=== PATIENT | male | born 1970 | race Two or more races ===

== ENCOUNTER 2023-12-19 12:31 | Outpatient (AMB) | payer OTHER, SELFPAY ==
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
[2023-12-19 12:53] VITALS: BP 108/68; PULSE 66; RESP 16; O2SAT 97; BMI 32.0
== END 2023-12-19 13:58 | disposition home or self-care (01) ==
PROVIDERS: PCP Physician Assistant; Visit Provider Physician Assistant
DX: Z00.00 Encounter for general adult medical examination without abnormal findings (principal); F17.210 Nicotine dependence, cigarettes, uncomplicated; F11.20 Opioid dependence, uncomplicated; F41.1 Generalized anxiety disorder; F33.1 Major depressive disorder, recurrent, moderate; E78.9 Disorder of lipoprotein metabolism, unspecified
CPT/HCPCS: 99386

== ENCOUNTER 2024-01-02 12:44 | Outpatient (AMB) | payer OTHER, SELFPAY ==
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
[2024-01-02 12:56] VITALS: BP 131/73; PULSE 61; O2SAT 96; BMI 31.9
== END 2024-01-02 13:31 | disposition home or self-care (01) ==
PROVIDERS: PCP Physician Assistant; Visit Provider Nurse Practitioner Family
DX: M51.35 Other intervertebral disc degeneration, thoracolumbar region (principal); M54.16 Radiculopathy, lumbar region; M47.817 Spondylosis without myelopathy or radiculopathy, lumbosacral region; R26.81 Unsteadiness on feet
CPT/HCPCS: 99204

== ENCOUNTER → 2024-01-02 12:44 | Outpatient (BNVA) | payer OTHER, SELFPAY | PROVIDERS: PCP Physician Assistant; Visit Provider Nurse Practitioner Family | DX: M51.35 Other intervertebral disc degeneration, thoracolumbar region (principal); M54.16 Radiculopathy, lumbar region; M47.817 Spondylosis without myelopathy or radiculopathy, lumbosacral region; R26.81 Unsteadiness on feet | CPT/HCPCS: 99202 ==

== ENCOUNTER 2024-01-19 09:45 | Outpatient (REF) | payer OTHER, SELFPAY ==
--- NOTE | ~2024-01-19 | XR_ITS ---
EXAMINATION: XR LUMBOSACRAL SPINE WITH OBLIQUES CLINICAL INFORMATION: Vertebral disc degeneration, thoracolumbar region COMPARISON: 01/31/2018 TECHNIQUE: AP, both oblique, and lateral views of the lumbar spine. Lateral view of the lumbosacral junction. FINDINGS: The visualized lumbar vertebrae are intact with mild L1-L2 dextroscoliosis. The right 12th rib is rudimentary. Intervertebral disc spaces are markedly reduced at L4-L5 and L5-S1. Bilateral oblique x-rays of lumbar spine show intact articular processes with no evidence of spondylolysis. XR/XR lumbar spine 4V min IMPRESSION: 1. Interval development of mild L1-L2 dextroscoliosis which may be positional. 2. Interval development of L4-L5 and L5-S1 degenerative lumbar disc disease. 3. No fracture or dislocation of lumbar spine is seen.
--- NOTE | ~2024-01-19 | XR_ITS ---
EXAMINATION: XR THORACIC SPINE CLINICAL INFORMATION: Thoracic spondylosis COMPARISON: None available. TECHNIQUE: 3 views of the thoracic spine were obtained. FINDINGS: The visualized thoracic vertebrae are intact with normal alignment. Intervertebral disc spaces are normal. 0.6 cm calcified granuloma is seen in lateral left upper lobe. XR/XR thoracic spine 3V IMPRESSION: 1. Normal thoracic spine x-ray. 2. No fracture or dislocation of thoracic spine is seen. 3. Lateral left upper lobe calcified granuloma is present, previously visualized on CT scan of chest on 02/02/2018.
[2024-01-19 10:57] LABS: Hematocrit 42.8 % (42.0-52.0); Hemoglobin 13.5 g/dl (14.0-18.0); Mean Corpuscular HGB Conc 31.5 g/dl (31.0-36.0); Mean Corpuscular Hemoglobin 25.9 pg (27.0-33.0); Mean Corpuscular Volume 82.1 fL (80.0-98.0); Mean Platelet Volume 11.7 fL (9.4-12.4); Platelet Count 212 X10*3/uL (160-400); Red Blood Count 5.21 X10*6/uL (4.60-5.80); Red Cell Distribution Width 15.1 % (11.0-16.0); White Blood Count 6.4 X10*3/uL (4.8-10.8)
[2024-01-19 11:27] LABS: Alanine Aminotransferase 20 U/L (0-40); Albumin Level 3.8 g/dL (3.5-5.0); Alkaline Phosphatase 83 U/L (39-117); Anion Gap 12 (12-20); Aspartate Amino Transferase 25 U/L (5-37); Bilirubin Total 0.3 mg/dL (0.0-1.0); Blood Urea Nitrogen 19 mg/dL (9-16); Calcium 9.6 mg/dL (8.4-10.2); Carbon Dioxide 30 mmol/L (22-29); Chloride 105 mmol/L (96-108); Cholesterol 211 mg/dL (<200); Estimated Glomerular Filt Rate > 60; Glucose Fasting 72 mg/dL (60-99); HDL Cholesterol 38 mg/dL (>40); LDL Cholesterol Calculated 130 mg/dL (<100); Sodium 142 mmol/L (135-145); Total Protein 8.2 g/dL (6.5-8.0); Triglycerides 218 mg/dL (<150)
== END 2024-01-19 09:46 | disposition home or self-care (01) ==
LOC: HO.LAB 09:45
PROVIDERS: Absent Provider Nurse Practitioner Family; PCP Physician Assistant; Visit Provider Physician Assistant
DX: Z12.5 Encounter for screening for malignant neoplasm of prostate (principal); Z13.1 Encounter for screening for diabetes mellitus; K21.9 Gastro-esophageal reflux disease without esophagitis; E78.9 Disorder of lipoprotein metabolism, unspecified; M51.35 Other intervertebral disc degeneration, thoracolumbar region; M54.16 Radiculopathy, lumbar region; M47.817 Spondylosis without myelopathy or radiculopathy, lumbosacral region
CPT/HCPCS: 36415; 72072; 72110; 80053; 80061; 84153; 85027

== ENCOUNTER 2024-01-26 11:00 | Outpatient (RCR) | payer OTHER, SELFPAY ==
--- NOTE | 2023-12-29 14:07 | MHC.PT.EP ---
[facility] [place] Office [place] Office [place] Office [address] [phone] F: [phone] F: [phone] F: [phone] F: [phone] Physical Therapy Plan of Care Date of Evaluation: 12/29/23 Date of Surgery: Diagnosis: Lumbar disc disease: Unspecified thoracic, thoracolumbar and lumbosacral intervertebral disc disorder (MD Dx) Lumbar radiculopathy (PT Dx) (RS) Assessment: Patient is a 53 y.o. male who is referred to PT by Steve Cohen PA-C with Dx of Lumbar disc disease: Unspecified thoracic, thoracolumbar and lumbosacral intervertebral disc disorder.PT diagnosis is lumbar radiculopathy, no imaging has been performed to see any osseous abnormalities or structural changes, also no imaging to indicate disc involvment, but he presents with disc involvment. Patient impairments include pain, poor posture, poor body mechanics, limited ROM, weakness, antalgic gait. Patient current functional limitations are prolonged walking, prolonged standing, prolonged sitting, squat/bend, some difficulty putting on shoes/socks, stair use, get on/off bus, sleeping. Patient will benefit from skilled PT to address aforementioned impairments and functional limitations to meet established goals. Prognosis is fair due to chronic nature of symptoms with compensation over 15+ years. Frequency and Duration: The patient will be seen 1-2x/week for 4 weeks Short Term Goals: 2 weeks Patient demonstrates consistency and independence with HEP to self manage symptoms. Mobility Manager Goals: 4 weeks Patient presents with increased lumbar flexion 70 degrees to be able to put on shoes/socks. Patient presents with increased bilateral glute med strength 4+/5 to be able to walk longer distances to bus stop without rest breaks. Treatment Plan: Modalities to reduce pain, spasms and effusion. Manual therapy to restore motion and function. Therapeutic exercise to improve strength and flexibility. Neuromuscular re-education for posture and balance. Therapeutic activities to return to functional activities of daily living. Electronically signed by: Parker Marinelli, PT, DPT Please sign and return to therapist. Thank you for your referral.
--- NOTE | 2024-03-13 13:07 | MHC.PT.DC ---
[facility] [place] [facility] [place] Office [place] [facility] [address] Josephine Hutchins [address] [phone] F: [phone] F: [phone] F: [phone] F: [phone] Physical Therapy Discharge Report Diagnosis: Lumbar disc disease: Unspecified thoracic, thoracolumbar and lumbosacral intervertebral disc disorder (MD Dx) Lumbar radiculopathy (PT Dx) (RS) Date of Surgery: Date of Evaluation: 12/29/23 Date of Discharge: 03/13/24 Treatments to Date: 4 Cancellations to Date: 1 No Shows to Date: 0 Discharge Status: Independent with HEP Patient Elected to Stop Discharge Summary: Pt last seen for PT on 01/26/24, the assessment reads, Rashad ambulates without AD and tends to lean due to compensations due to back pain and hip weakness. He limits R hip extension and reduced WBing through R leg. He reports fatigue with more exercises for his low back, also pain and pull with stand to sit R side fo his back, likely due to muscle imbalances at pelvis. He reports no increase in pain to end session, just muscle soreness. Encouraged him to work on seated cores strengthening versus standing. He ceased attending on his own accord. Electronically signed by: Parker Marinelli, PT, DPT Please sign and return to therapist. Thank you for your referral.
== END 2024-03-13 13:08 | disposition home or self-care (01) ==
LOC: HO.PT 11:00
PROVIDERS: PCP Physician Assistant; Visit Provider Physician Assistant
DX: M51.9 Unspecified thoracic, thoracolumbar and lumbosacral intervertebral disc disorder (principal)
CPT/HCPCS: 97110; 97112; 97162; 97530

== ENCOUNTER 2024-02-09 10:24 | Outpatient (AMB) | payer OTHER, SELFPAY ==
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
[2024-02-09 11:35] VITALS: BP 116/72; PULSE 70; O2SAT 95; BMI 33.5
== END 2024-02-09 12:07 | disposition home or self-care (01) ==
PROVIDERS: PCP Physician Assistant; Visit Provider Physician Assistant
DX: K21.9 Gastro-esophageal reflux disease without esophagitis (principal); F11.20 Opioid dependence, uncomplicated; F33.1 Major depressive disorder, recurrent, moderate; F17.210 Nicotine dependence, cigarettes, uncomplicated; M51.9 Unspecified thoracic, thoracolumbar and lumbosacral intervertebral disc disorder; F41.1 Generalized anxiety disorder; E78.9 Disorder of lipoprotein metabolism, unspecified; R10.11 Right upper quadrant pain
CPT/HCPCS: 99214

== ENCOUNTER 2024-02-14 14:19 | Outpatient (REF) | payer OTHER, SELFPAY ==
--- NOTE | ~2024-02-14 | MR_ITS ---
EXAMINATION: MR LUMBAR SPINE WITHOUT CONTRAST CLINICAL INFORMATION: Low back pain radiating down both legs. COMPARISON: MRI dated 06/30/2018. TECHNIQUE: Multiplanar, multisequence imaging was obtained. FINDINGS: VERTEBRAL BODIES AND PARASPINAL STRUCTURES: There is significant edema in the L4/L5 pedicles and posterior elements bilaterally. Mild edema is also present in the deep posterior paraspinal soft tissues at these levels. There is edema also present in the right sacral ala. The remainder of the marrow signal is fairly homogeneous. There are no compression fractures. A mild anterolisthesis has developed at the L5-S1 level when compared to previous imaging. It is difficult to discern as to whether there are L5 pars fractures, given significant edematous changes in the posterior elements. Reduced intradiscal signal and mild loss of disc height noted at the L4-L5 and L5-S1 levels. There is a mild posterior subluxation as well at the L1-L2 level. Disc degeneration and bqbj-gg-pyyrckwe loss of disc height visible at the T10-T11 and T11-T12 levels with mild anterior endplate edema at T11-T12. Wgssjxor-nc-okeymw sacroiliac joint space narrowing evident, worse on the left side with osteophytic spurring. The remaining paraspinal soft tissues appear normal. There is epidural lipomatosis which has worsened resulting in multilevel thecal sac distortion as well. CONUS MEDULLARIS AND CAUDA EQUINE: The distal cord, conus tip, and cauda equina nerve roots are normal. SPINAL LEVELS: L1-L2: Mild posterior subluxation and disc bulge with hypertrophic facet arthropathy present. No central canal stenosis or significant foraminal narrowing. L2-L3: Mild facet arthropathy. Shallow right posterolateral disc protrusion. Mild epidural fat prominence slightly distorting the thecal sac. No central canal stenosis or significant foraminal encroachment. L3-L4: Mild facet arthropathy. No focal disc protrusion or central canal stenosis. Epidural fat prominence now results in oxsicrsw-pj-gvmrmj thecal sac distortion, new compared to prior imaging. Bulging disc mildly encroaches upon the neural foramina. L4-L5: Disc degeneration and mild anterior subluxation with a broad-based disc bulge and dfkyczbd-fm-xlxvnj facet arthropathy. Mild central canal narrowing. Epidural lipomatosis has worsened at this level resulting in severe thecal sac distortion. Ynxk-nl-geinrgsp bilateral foraminal narrowing. Significant edema in the pedicles and posterior elements. L5-S1: Mild anterolisthesis and disc degeneration with a posterior disc bulge and small central disc protrusion. Significant epidural fat prominence results in thecal sac distortion, similar to prior imaging. No central canal stenosis. Mild left foraminal narrowing. Severe right foraminal encroachment and compression of the right L5 nerve root, worsened since the previous examination. Marrow edema in the pedicles bilaterally and the right posterior elements. Additional marrow edema in the right sacral ala. MR/MR lumbar spine wo con IMPRESSION: Progressed spondylosis at the L5-S1 level with a mild anterolisthesis, diffuse disc bulge, and small central disc protrusion. Epidural lipomatosis continues to distort the thecal sac. New significant marrow edema in the pedicles and posterior elements with question of underlying L5 pars defects. Severe right foraminal narrowing and compression of the right L5 nerve root, worsened since previous imaging. Moderate edema in the right sacral ala, which may be due to stress-related changes. A targeted CT study could be obtained in followup for further assessment. Minimal anterolisthesis at the L4-L5 level with a mild degenerative disc bulge and severe facet arthropathy. Edema in the pedicles and posterior elements, which may be stress-related and reactive. Significant epidural lipomatosis resulting in severe thecal sac distortion, new compared to prior imaging. Mild central canal stenosis. Uparnjvi-lg-gctsqa thecal sac distortion due to worsened epidural lipomatosis at the L3-L4 level.
== END 2024-02-14 14:20 | disposition home or self-care (01) ==
LOC: HO.MRI 14:19
PROVIDERS: PCP Physician Assistant; Visit Provider Nurse Practitioner Family
DX: M47.817 Spondylosis without myelopathy or radiculopathy, lumbosacral region (principal); M54.16 Radiculopathy, lumbar region; M51.35 Other intervertebral disc degeneration, thoracolumbar region; R26.81 Unsteadiness on feet
CPT/HCPCS: 72148

== ENCOUNTER 2024-02-24 10:38 | Outpatient (AMB) | payer OTHER, SELFPAY ==
--- NOTE | 2024-02-24 11:21 | A.SPINEOV_ITS ---
Intake Visit Reasons: lumbar radiculopathy Intake Note: Mr. oG is here today c/o Middle and Lower back pain that radiates down right leg. Med Spa Manager Required: No Allergies tramadol [TRAMADOL] Allergy (Unknown, Verified 02/24/24 11:22) VOMITING Assessment & Plan Assessment & Plan (1) Hand weakness: Code(s): R29.898 - Other symptoms and signs involving the musculoskeletal system Category: Medical (2) Lumbar spinal stenosis: Code(s): M48.061 - Spinal stenosis, lumbar region without neurogenic claudication Category: Medical Plan Dear Gloria Thank you for referring Mr. Go to our office today. Is a very nice 54-year-old gentleman who presents to the office today for evaluation of chronic low back pain going down his right leg into his posterior thigh ending at about the level of his knee. He has had these issues now going on for many years but getting progressively worse. When he tries to stand and walk he has to walk with a flexed posture and the pain will become so bad at the point he has to sit down after few minutes. It has been getting hard to go through the grocery store or do any ADLs because of the pain. He underwent physical therapy and chiropractic well as acupuncture without any significant improvement. He is tried anti-inflammatories, Tylenol, gabapentin etc. without much relief. He underwent an MRI showing L5 pars defects with degenerative disc disease at L5-S1 and neuroforaminal stenosis and was sent to see us for an evaluation. PMH: He reports being otherwise healthy outside of some asthma. His chart reports that he has GERD, previous opiate dependence on methadone unsteady gait with walking, depression, smoker Social hx: He does smoke a pack a day, denies any use of recreational drugs or alcohol. Medications: Albuterol, cyclobenzaprine, gabapentin, methadone, omeprazole, venlafaxine Allergies: Tramadol Physical exam: He is awake alert oriented no acute distress, he walks with a cane, he has a slightly flexed posture. He has bilateral hand and upper extremity weakness in the triceps and biceps. Lower extremity strength is full. He has hyperreflexia in the upper extremities with Diaz's sign in the right hand as well as hyperreflexia in the lower extremities with clonus. Imaging review: Lumbar MRI an x-ray done at [facility] shows pars defects at L5 with spondylolisthesis grade 1 and bilateral neuroforaminal stenosis but severe on the right. The report suggests severe stenosis from epidural lipomatosis but I think it is moderate at worst. Impression: 54-year-old male presents for evaluation of back pain and right posterior thigh pain in the setting of spondylolisthesis secondary to spondylolysis with severe right neuroforaminal stenosis. He is trialed conservative treatment as outlined above. Typically this is something Dr. Toussaint would offer him either trans Kambin or anterior lumbar interbody fusion. Before discussing this however, the patient reports feelings of numbness in his hand on the right, some gait imbalance and on my examination he has hyperreflexia with clonus in both ankles. He also has a Diaz's sign and weakness of his hands. I would like to get a cervical MRI to rule out myelopathy before we address his lumbar spine. Once that is completed I will bring him back into review the results and go over any surgical indications with either his neck or his back. Thank you for allowing us to care for your patient. The total time spent with this visit with this patient was 45 minutes reviewing history, physical exam, lumbar imaging review, and implementation of treatment plan or further diagnostic testing Galen Toussaint MD,PhD [facility] Orders: Orders MR cervical spine wo con Today R29.898 - Other symptoms and signs involving the musculoskeletal system Coding Level of Care Code New Pt Level 4 (50225) Diagnoses Hand weakness R29.898 Lumbar spinal stenosis M48.061
== END 2024-02-24 12:04 | disposition home or self-care (01) ==
PROVIDERS: PCP Physician Assistant; Referring Provider Nurse Practitioner Family; Visit Provider Physician Assistant
DX: R29.898 Other symptoms and signs involving the musculoskeletal system (principal); M48.061 Spinal stenosis, lumbar region without neurogenic claudication
CPT/HCPCS: 99204

== ENCOUNTER → 2024-02-24 10:38 | Outpatient (BNVA) | payer OTHER, SELFPAY | PROVIDERS: PCP Physician Assistant; Visit Provider Physician Assistant | DX: M48.061 Spinal stenosis, lumbar region without neurogenic claudication (principal); R29.898 Other symptoms and signs involving the musculoskeletal system | CPT/HCPCS: 99202 ==

== ENCOUNTER 2024-03-02 09:08 | Outpatient (REF) | payer OTHER, SELFPAY ==
--- NOTE | ~2024-03-02 | US_ITS ---
EXAMINATION: US ABDOMEN LIMITED CLINICAL INFORMATION: Right upper quadrant pain. Evaluate cholecystitis versus cholelithiasis. COMPARISON: None available. TECHNIQUE: Real-time imaging of the right upper quadrant abdominal viscera. FINDINGS: PANCREAS: The pancreas appears unremarkable, without masses or ductal dilatation, with the exception of the tail which is obscured by bowel gas. LIVER: Normal. The liver is normal in size. The liver contour is normal. Parenchymal echogenicity is normal. No focal hepatic lesion. There is no intrahepatic biliary duct dilatation seen. GALLBLADDER: Multiple areas of comet tail shadowing are seen at the gallbladder fundus with some twinkle artifact suggesting adenomyomatosis. The gallbladder is physiologically distended without evidence of stones, sludge, polyps, wall thickening or pericholecystic fluid. COMMON BILE DUCT: Normal in caliber measuring 0.3 cm in diameter. RIGHT KIDNEY: Normal. No hydronephrosis. No renal calculi or focal parenchymal lesions. The kidney measures 10.3 cm in maximum dimension. FREE FLUID: None. US/US abdomen limited IMPRESSION: Adenomyomatosis of the gallbladder. No evidence of cholelithiasis or cholecystitis.
== END 2024-03-02 09:09 | disposition home or self-care (01) ==
LOC: HO.US 09:08
PROVIDERS: PCP Physician Assistant; Visit Provider Physician Assistant
DX: R10.11 Right upper quadrant pain (principal)
CPT/HCPCS: 76705

== ENCOUNTER 2024-03-30 10:19 | Outpatient (AMB) | payer OTHER, SELFPAY ==
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
== END 2024-03-30 10:48 | disposition home or self-care (01) ==
PROVIDERS: PCP Physician Assistant; Referring Provider Physician Assistant; Visit Provider Physician Assistant Medical
DX: F17.210 Nicotine dependence, cigarettes, uncomplicated (principal)
CPT/HCPCS: G0296

== ENCOUNTER 2024-03-30 10:34 | Outpatient (REF) | payer OTHER, SELFPAY ==
--- NOTE | ~2024-03-30 | CT_ITS ---
EXAMINATION: CT LOW-DOSE SCREENING CHEST WITHOUT CONTRAST CLINICAL INFORMATION: Nicotine dependence, cigarettes, uncomplicated. The patient is a current smoker with a 59 pack-year history of smoking. COMPARISON: CT chest 02/02/2018. X-ray chest 01/03/2018. TECHNIQUE: Multidetector volumetric CT imaging of the chest is performed on a Siemens SOMATOM Definition scanner without contrast using low dose technique. Additional 2D coronal and sagittal reformatted images and axial 3D maximum intensity projection (MIP) images are generated on the CT workstation. This CT examination was performed using dose optimization techniques as appropriate, variously including the following: *Automated exposure control *Adjustment of mA and/or kV according to patient size (this includes techniques or standardized protocols for targeted exams where dose is matched to indication/reason for exam; i.e. extremities or head) *Use of iterative reconstruction technique TOTAL EXAM DLP: 66 mGy-cm. CTDIvol: 1.94 mGy. FINDINGS: PULMONARY NODULES: 2 calcified granulomas are present in the left upper lobe unchanged. A couple of other tiny micronodules are seen and unchanged the largest measuring 2 mm in the left upper lobe along the fissure (5:169 compare prior 4:190). No new, increasing sized or suspicious nodule is seen. LUNGS: Lungs bilaterally symmetrically expanded. There is mild emphysema and mild bronchial thickening without bronchiectasis. No focal lung nodule or mass. No effusion or pneumothorax. Central airways patent. MEDIASTINUM: No mediastinal, hilar or axillary adenopathy or free fluid collection. CORONARY ARTERY CALCIFICATION: Mild. THYROID GLAND: Unremarkable to the extent seen. CARDIOVASCULAR STRUCTURES: Aortic and heart size normal. No pericardial effusion. CHEST WALL/AXILLA: Unremarkable. UPPER ABDOMEN: Included portions of the solid organs in the upper abdomen unremarkable on noncontrast imaging. OSSEOUS STRUCTURES: No suspicious focal findings. CT/CT lung screening IMPRESSION: 1. No evidence of pulmonary malignancy. 2. Mild emphysema and bronchial thickening. 3. Incidental findings (s category): No incidental findings. ASSESSMENT: 1. Lung-RADS Category 2: Benign appearance or behavior of nodules. N/A RECOMMENDATION: Continued routine annual low-dose CT lung screening in 1 year is recommended. An order for CT CHEST LOW DOSE CANCER SCREENING ([id number]) can be placed.
== END 2024-03-30 10:35 | disposition home or self-care (01) ==
LOC: HO.CT 10:34
PROVIDERS: PCP Physician Assistant; Visit Provider Nurse Practitioner Family
DX: Z12.2 Encounter for screening for malignant neoplasm of respiratory organs (principal); F17.210 Nicotine dependence, cigarettes, uncomplicated
CPT/HCPCS: 71271; G0296

== ENCOUNTER 2024-04-03 09:59 | Outpatient (REF) | payer OTHER, SELFPAY | END 2024-04-03 10:00 | disposition home or self-care (01) | LOC: HO.MRI 09:59 | PROVIDERS: PCP Physician Assistant; Visit Provider Physician Assistant | DX: Z13.89 Encounter for screening for other disorder (principal) ==

== ENCOUNTER 2024-04-10 08:43 | Outpatient (AMB) | payer OTHER, SELFPAY ==
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
[2024-04-10 09:08] VITALS: BP 110/60; PULSE 60; BMI 34.8
== END 2024-04-10 09:19 | disposition home or self-care (01) ==
PROVIDERS: PCP Physician Assistant; Referring Provider Physician Assistant; Visit Provider Surgery
DX: R10.32 Left lower quadrant pain (principal); K82.8 Other specified diseases of gallbladder
CPT/HCPCS: 99203

== ENCOUNTER → 2024-04-10 08:43 | Outpatient (BNVA) | payer OTHER, SELFPAY | PROVIDERS: PCP Physician Assistant; Referring Provider Physician Assistant; Visit Provider Surgery | DX: R10.32 Left lower quadrant pain (principal); K82.8 Other specified diseases of gallbladder; D13.5 Benign neoplasm of extrahepatic bile ducts | CPT/HCPCS: 99202 ==

== ENCOUNTER 2024-08-22 08:21 | Outpatient (AMB) | payer OTHER, SELFPAY ==
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
[2024-08-22 08:38] VITALS: BP 110/78; PULSE 58; O2SAT 97; BMI 33.7
== END 2024-08-22 09:20 | disposition home or self-care (01) ==
LOC: HO.HMCH 08:22
PROVIDERS: PCP Physician Assistant; Visit Provider Physician Assistant
DX: F17.210 Nicotine dependence, cigarettes, uncomplicated (principal); R68.82 Decreased libido; R10.32 Left lower quadrant pain; F11.20 Opioid dependence, uncomplicated; E78.9 Disorder of lipoprotein metabolism, unspecified; Z23 Encounter for immunization

== ENCOUNTER → 2024-08-22 08:21 | Outpatient (BNVA) | payer OTHER, SELFPAY | PROVIDERS: PCP Physician Assistant; Visit Provider Physician Assistant | DX: Z23 Encounter for immunization (principal); R10.32 Left lower quadrant pain; R68.82 Decreased libido; F11.20 Opioid dependence, uncomplicated; F17.210 Nicotine dependence, cigarettes, uncomplicated; E78.9 Disorder of lipoprotein metabolism, unspecified; Z71.6 Tobacco abuse counseling | CPT/HCPCS: 90471; 90656; 99212 ==

== ENCOUNTER 2025-04-04 13:45 | Outpatient (AMB) | payer OTHER, SELFPAY ==
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
[2025-04-04 13:52] VITALS: BP 142/100; PULSE 125; TEMP 36.2; O2SAT 94; BMI 34.4
--- OUTSIDE RECORDS SUMMARY | 2025-04-04 14:57 | XMS_ITS | Patient Health Record ---
Author Organization [facility] Address [address] [place], [place] [id number] Care Team Providers Care Crewman [employer] Name Role Phone [facility] Primary Care Provider Un available Vilma Goldstein Unavailable Reason For Referral No Information Encounters Encounter Location Date Provider Diagnosis [facility] [address] [place], [place] [id number] 08/08/2024 Vilma Goldstein Plan Of Treatment No Information Insurance Providers Payer Name Payer Address Payer Phone Subscriber Number Group Number Insured Name Patient Relationship to Insured Coverage Start Date Coverage End Date [place] [address] [place] [address] [id number] Rashad Go Self - patient is the insured
== END 2025-04-04 14:20 | disposition home or self-care (01) ==
LOC: HO.HMCH 13:45
PROVIDERS: PCP Physician Assistant; Visit Provider Physician Assistant
DX: F51.01 Primary insomnia (principal); F33.1 Major depressive disorder, recurrent, moderate; F11.20 Opioid dependence, uncomplicated; E78.9 Disorder of lipoprotein metabolism, unspecified; F17.210 Nicotine dependence, cigarettes, uncomplicated; M25.461 Effusion, right knee; R20.2 Paresthesia of skin; M51.35 Other intervertebral disc degeneration, thoracolumbar region

== ENCOUNTER → 2025-04-04 13:45 | Outpatient (BNVA) | payer OTHER, SELFPAY | PROVIDERS: PCP Physician Assistant; Visit Provider Physician Assistant | DX: K21.9 Gastro-esophageal reflux disease without esophagitis (principal); F11.20 Opioid dependence, uncomplicated; E78.00 Pure hypercholesterolemia, unspecified; F17.210 Nicotine dependence, cigarettes, uncomplicated; M25.461 Effusion, right knee; F51.01 Primary insomnia; F33.1 Major depressive disorder, recurrent, moderate; R20.2 Paresthesia of skin; M51.35 Other intervertebral disc degeneration, thoracolumbar region; F41.1 Generalized anxiety disorder; M47.27 Other spondylosis with radiculopathy, lumbosacral region | CPT/HCPCS: 96127; 99212 ==

== ENCOUNTER 2025-04-15 14:13 | Outpatient (AMB) | payer OTHER, SELFPAY ==
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
[2025-04-15 14:25] VITALS: BP 133/82; PULSE 72; O2SAT 96; BMI 34.1
--- OUTSIDE RECORDS SUMMARY | 2025-04-15 14:46 | XMS_ITS | Patient Health Record ---
Author Organization [facility] Address [address] [place], [place] [id number] Care Team Providers Care Early Head Start Teacher Name Role Phone [facility] Primary Care Provider Un available Vilma Goldstein Unavailable Reason For Referral No Information Encounters Encounter Location Date Provider Diagnosis [facility] [address] [place], [place] [id number] 08/08/2024 Vilma Goldstein Plan Of Treatment No Information Insurance Providers Payer Name Payer Address Payer Phone Subscriber Number Group Number Insured Name Patient Relationship to Insured Coverage Start Date Coverage End Date [place] Medicaid Standard [address] [place] [address] [id number] Rashad Go Self - patient is the insured
--- OUTSIDE RECORDS SUMMARY | 2025-04-15 14:46 | XMS_ITS | Clinical Summary ---
Author Organization [facility] Address [address] [place] [address] Care Team Providers Care Online Media Director Name Role Phone Unavailable Primary Care Provider Unavailabl e Social History Tobacco Use Types Packs/Day Years Used Date Smoking Tobacco: Never Assessed Sex and Gender Information Value Date Recorded Sex Assigned at Not on file Legal Sex Male 6:13 PM EST Gender Identity Not on file Sexual Orientation Not on file Plan of Treatment Health Maintenance Due Date Last Done Comments DTaP,Tdap,and Td Vaccines (1 - Tdap) 01/04/1991 Hepatitis B Vaccines (1 of 3 - 19+ 3-dose series) 01/04/1991 Pneumococcal Vaccine: 50+ Ye ars (1 of 1 - PCV) 01/04/2022 Zoster Vaccines (1 of 2) 01/04/2022 COVID-19 Vaccine (1 - 2023-2 5 season) 2024 Influenza Vaccine (Season Ended) 2025 HIB Vaccines Aged Out No longer eligi ble based on patient's age to complete this topic HPV Vaccines Aged Out No longer eligi ble based on patient's age to complete this topic Hepatitis A Vaccines Aged Out No long er eligible based on patient's age to complete this topic IPV Vaccines Aged Out No longer eligi ble based on patient's age to complete this topic MMR Vaccines Aged Out No longer eligi ble based on patient's age to complete this topic Meningococcal ACWY Vaccine Aged Out N o longer eligible based on patient's age to complete this topic Meningococcal B Vaccine Aged Out No l onger eligible based on patient's age to complete this topic Pneumococcal Vaccine: Pediat rics (0 to 5 Years) and At-Risk Patients (6 to 64 Years) Aged Out No longer eligible b ased on patient's age to complete this topic RSV Immunization Patients Un isa 20 months Aged Out No longer eligible b ased on patient's age to complete this topic Varicella Vaccines Aged Out No longer eligible based on patient's age to complete this topic
== END 2025-04-15 14:41 | disposition home or self-care (01) ==
LOC: HO.PMC 14:14
PROVIDERS: PCP Physician Assistant; Referring Provider Physician Assistant; Visit Provider Nurse Practitioner Family
DX: R20.2 Paresthesia of skin (principal); M54.12 Radiculopathy, cervical region; M51.35 Other intervertebral disc degeneration, thoracolumbar region; M54.16 Radiculopathy, lumbar region; M47.817 Spondylosis without myelopathy or radiculopathy, lumbosacral region; M48.061 Spinal stenosis, lumbar region without neurogenic claudication; R26.81 Unsteadiness on feet; M53.3 Sacrococcygeal disorders, not elsewhere classified
CPT/HCPCS: 99214; G2211

== ENCOUNTER → 2025-04-15 14:13 | Outpatient (BNVA) | payer OTHER, SELFPAY | PROVIDERS: PCP Physician Assistant; Referring Provider Physician Assistant; Visit Provider Nurse Practitioner Family | DX: R20.2 Paresthesia of skin (principal); M54.12 Radiculopathy, cervical region; M47.817 Spondylosis without myelopathy or radiculopathy, lumbosacral region; M48.061 Spinal stenosis, lumbar region without neurogenic claudication; R26.81 Unsteadiness on feet | CPT/HCPCS: 99212 ==

== ENCOUNTER 2025-05-14 08:32 | Outpatient (REF) | payer OTHER, SELFPAY ==
--- NOTE | 2025-05-14 08:35 | EMG_ITS ---
Please see the attached neurophysiology report MTDD
--- OUTSIDE RECORDS SUMMARY | 2025-05-14 08:48 | XMS_ITS | Patient Health Record ---
Author Organization [facility] Address [address] [place], [place] [id number] Care Team Providers Care Visitor Services Associate Name Role Phone [facility] Primary Care Provider Vilma Goldstein [facility] Reason For Referral No Information Encounters Encounter Location Date Provider Diagnosis [facility] [address] [place], [place] [phone] 08/08/2024 Vilma Goldstein Plan Of Treatment No Information Insurance Providers Payer Name Payer Address Payer Phone Subscriber Number Group Number Insured Name Patient Relationship to Insured Coverage Start Date Coverage End Date [place] Medicaid Standard [address] [place] [address] [phone] [id number] Rashad Go Self - patient is the insured
--- OUTSIDE RECORDS SUMMARY | 2025-05-14 08:48 | XMS_ITS | Clinical Summary ---
Author Organization [facility] Address [address] [place] [address] Care Team Providers Care Well Services Operator Name Role Phone Unavailable Primary Care Provider [...] Vaccine (1 - 2023-2 5 season) 2024 Depression Screening 10/17/2024 Influenza Vaccine (#1) 2025 HIB Vaccines Aged Out No longer [...]
== END 2025-05-14 08:33 | disposition home or self-care (01) ==
LOC: HO.NEURO 08:32
PROVIDERS: PCP Physician Assistant; Visit Provider Physician Assistant
DX: R20.2 Paresthesia of skin (principal); G56.13 Other lesions of median nerve, bilateral upper limbs; G56.23 Lesion of ulnar nerve, bilateral upper limbs
CPT/HCPCS: 95886; 95911

== ENCOUNTER → 2025-05-14 08:35 | Outpatient (BNV) | payer OTHER, SELFPAY | PROVIDERS: PCP Physician Assistant; Visit Provider Psychiatry & Neurology Neurology | DX: G56.03 Carpal tunnel syndrome, bilateral upper limbs (principal); G56.23 Lesion of ulnar nerve, bilateral upper limbs | CPT/HCPCS: 95886; 95911 ==

== ENCOUNTER 2025-05-28 10:52 | Outpatient (AMB) | payer OTHER, SELFPAY ==
[2025-05-28 11:13] VITALS: BMI 34.1
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
--- OUTSIDE RECORDS SUMMARY | 2025-05-28 12:00 | XMS_ITS | Patient Health Record ---
Author Organization [facility] Address [address] [place], [place] [id number] Care Team Providers Care Application Systems Engineer Name Role Phone [facility] Primary Care Provider Vilma Goldstein [facility] [phone] Reason For Referral No Information Encounters Encounter Location Date Provider Diagnosis [facility] [address] [place], [place] [phone] 08/08/2024 Vilma Goldstein Plan Of Treatment No Information Insurance Providers Payer Name Payer Address Payer Phone Subscriber Number Group Number Insured Name Patient Relationship to Insured Coverage Start Date Coverage End Date [place] Medicaid Standard [address] [place] [address] [phone] [id number] Rashad Go Self - patient is the insured
--- OUTSIDE RECORDS SUMMARY | 2025-05-28 12:01 | XMS_ITS | Clinical Summary ---
Author Organization [facility] ity Address [address] [place] [address] Care Team Providers Care Motorcycle Riding Instructor Name Role Phone Unavailable Primary Care Provider [...]
== END 2025-05-28 11:41 | disposition home or self-care (01) ==
LOC: HO.HOS 10:53
PROVIDERS: PCP Physician Assistant; Visit Provider Orthopaedic Surgery
DX: G56.21 Lesion of ulnar nerve, right upper limb (principal); G56.03 Carpal tunnel syndrome, bilateral upper limbs; G56.22 Lesion of ulnar nerve, left upper limb; F17.210 Nicotine dependence, cigarettes, uncomplicated; F11.20 Opioid dependence, uncomplicated
CPT/HCPCS: 99204

== ENCOUNTER → 2025-05-28 10:52 | Outpatient (BNVA) | payer OTHER, SELFPAY | PROVIDERS: PCP Physician Assistant; Visit Provider Orthopaedic Surgery | DX: G56.13 Other lesions of median nerve, bilateral upper limbs (principal); G56.23 Lesion of ulnar nerve, bilateral upper limbs; G56.03 Carpal tunnel syndrome, bilateral upper limbs; F11.20 Opioid dependence, uncomplicated; F17.210 Nicotine dependence, cigarettes, uncomplicated | CPT/HCPCS: 99202 ==

== ENCOUNTER 2025-07-02 11:27 | Outpatient (AMB) | payer OTHER, SELFPAY ==
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
[2025-07-02 11:35] VITALS: BMI 34.1
--- OUTSIDE RECORDS SUMMARY | 2025-07-02 15:42 | XMS_ITS | Clinical Summary ---
Author Organization [facility] ity Address [address] [place] [address] Care Team Providers Care Security Operations Analyst Name Role Phone Unavailable Primary Care Provider [...] 01/04/2022 Zoster Vaccines (1 of 2) 01/04/2022 Depression Screening 10/17/2024 COVID-19 Vaccine (1 - 2023-2 5 season) 2025 Influenza Vaccine (#1) 2025 HIB Vaccines Aged [...]
--- OUTSIDE RECORDS SUMMARY | 2025-07-02 15:42 | XMS_ITS | Patient Health Record ---
Author Organization [facility] Address [address] [place] [address] Care Team Providers Care Gas Leak Inspector Name Role Phone [facility] Primary Care Provider [phone] Vilma Goldstein [facility] Reason For Referral No Information Encounters Encounter Location Date Provider Diagnosis [facility] [address] [place], [place] [phone] 08/08/2024 Vilma Goldstein Plan Of Treatment No Information Insurance Providers Payer Name Payer Address Payer Phone Subscriber Number Group Number Insured Name Patient Relationship to Insured Coverage Start Date Coverage End Date [place] Medicaid Standard [address] [place] [address] [id number] Rashad Go Self - patient is the insured
== END 2025-07-02 11:48 | disposition home or self-care (01) ==
LOC: HO.HOS 11:28
PROVIDERS: PCP Physician Assistant
DX: G56.23 Lesion of ulnar nerve, bilateral upper limbs (principal); G56.03 Carpal tunnel syndrome, bilateral upper limbs; F17.210 Nicotine dependence, cigarettes, uncomplicated; F11.20 Opioid dependence, uncomplicated
CPT/HCPCS: 99024

== ENCOUNTER → 2025-07-02 11:27 | Outpatient (BNVA) | payer OTHER, SELFPAY | PROVIDERS: PCP Physician Assistant | DX: Z01.818 Encounter for other preprocedural examination (principal); G56.21 Lesion of ulnar nerve, right upper limb; G56.01 Carpal tunnel syndrome, right upper limb; G56.22 Lesion of ulnar nerve, left upper limb; G56.02 Carpal tunnel syndrome, left upper limb; F17.210 Nicotine dependence, cigarettes, uncomplicated; F11.20 Opioid dependence, uncomplicated | CPT/HCPCS: 99212 ==

== ENCOUNTER 2025-07-11 06:55 | Day surgery (SDC) | payer OTHER, SELFPAY ==
--- OUTSIDE RECORDS SUMMARY | 2025-05-30 07:51 | XMS_ITS | Clinical Summary ---
Author Organization [facility] ity Address [address] [place] [address] Care Team Providers Care Electronic Warfare Technician Name Role Phone Unavailable Primary Care Provider [...]
--- OUTSIDE RECORDS SUMMARY | 2025-05-30 07:51 | XMS_ITS | Patient Health Record ---
Author Organization [facility] Address [address] [place], [place] [id number] Care Team Providers Care Environmental Remediation Engineer Name Role Phone [facility] Primary Care Provider Vilma Goldstein [facility] Reason For Referral No Information Encounters Encounter Location Date Provider Diagnosis [facility] [address] [place], [place] [phone] 08/08/2024 Vilma Goldstein Plan Of Treatment No Information Insurance Providers Payer Name Payer Address Payer Phone Subscriber Number Group Number Insured Name Patient Relationship to Insured Coverage Start Date Coverage End Date [place] Medicaid Standard [address] [place] [address] [phone] [id number] Rashad Go Self - patient is the insured
[2025-06-27 12:29] VITALS: BP 115/60; PULSE 71; RESP 16; O2SAT 97; BMI 36.0
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
[2025-07-11] VITALS (8 sets, daily range): BP systolic 93–143; BP diastolic 47–73; PULSE 72–90; RESP 16; TEMP 36.2–36.6; O2SAT 96–98; BMI 35.5
--- NOTE | 2025-07-11 06:13 | PC.NURSE ---
called patient and is awaiting for his ride to pick him up.
[2025-07-11] MEDS: Lactated Ringers 1,000 ML 100 ML IVCONT (07:22)
--- NOTE | 2025-07-11 07:34 | P.OP_ITS ---
Operative Note Operative Note Date of Service: 07/11/25 Narrative: Operative Note Narrative: Preop diagnosis: 1. Right Cubital tunnel syndrome 2. Right carpal tunnel syndrome Postop diagnosis: Same Procedure: 1. Right Cubital Tunnel Release 2. Right carpal tunnel release Surgeon: Linh Rutherford MD Financial Analyst Intern: Alexandr FRAIRE Anesthesia: General Anesthesia Findings: Thickening and fibrosis about the ulnar nerve at the cubital tunnel Implants: none Tourniquet time: 43 minutes EBL: 5.0 ml Specimen: none Drains: None Complications: None Disposition: Brought to the recovery room in stable condition Plan: Follow-up in 10-14 days for wound check, and suture removal Indications: The patient is 55 years old with right cubital tunnel syndrome and right carpal tunnel syndrome . The risks and benefits of operative treatment, including but not limited to risk of damage to blood vessels, nerves, tendons, infection, recurrence, persistent pain or numbness, incomplete resolution of preoperative symptoms, or need for further surgery were discussed with the patient and they wished to proceed with surgery. Procedure: Once consent was obtained patient was brought back to the operating suite and placed in the operating table in a supine position. Perioperative antibiotics and anesthesia was administered by the anesthesia team. The limb was prepped and draped in a standard surgical fashion, and a sterile tourniquet applied to the proximal aspect of the right upper extremity. The limb was elevated exsanguinated with Esmarch bandage and the tourniquet inflated to 250 mm of mercury for a total tourniquet time of 43 minutes. Once assured that we had a good block, a 2.0 cm longitudinal incision was made centered over the right carpal tunnel. The incision was made through the skin to the subcutaneous tissues using a #15 blade. Dissection was made down to the level of the transverse carpal ligament with care being taken to protect the palmar cutaneous nerve. Once the transverse carpal ligament was clearly visualized, a longitudinal incision was made in the transverse carpal ligament 1st using a #15 blade, then using tenotomy scissors under direct visualization. Care was taken to look for and protect the motor branch of the median nerve when seen in this area. Once satisfied with our carpal tunnel release the wound was irrigated with normal saline. A 6 cm gently curved but longitudinally oriented incision was made centered over the cubital tunnel of the right upper extremity. Incision was made through the skin to the subcutaneous tissues using a # 15 Blade. I then dissected down to the level of the medial epicondyle and the cubital tunnel using tenotomy scissors. Care was taken to protect the medial antebrachial cutaneous nerve. The ulnar nerve was identified just posterior to the medial intermuscular septum. The ulnar nerve was released in a proximal to distal direction using tenotomy in iris scissors while directly visualizing and protecting the ulnar nerve. Thickening and fibrosis was appreciated about the ulnar nerve as it passed through the cubital tunnel. The ulnar nerve was assessed as I passed the elbow through full flexion and extension and was found to remain stable within its groove. At this point the tourniquet was deflated and hemostasis obtained with a brief period of local pressure and bipolar electrocautery. The wound was copiously irrigated with normal saline. The subcutaneous layer was closed with 4-0 Vicryl suture, and the skin edges were reapproximated with 5-0 nylon suture. The wounds were infiltrated with some 1% lidocaine with epinephrine for postop pain control and sterile dressings were applied. The patient appears to have tolerated the procedure well and with no complications. All digits were well vascularized at the conclusion of the case.
--- NOTE | 2025-07-11 07:34 | MHC.SHP ---
Pre-Procedural Eval Section A - 24 Hr Update-Section A only Date of Service: 07/11/25 The patient is an INPATIENT: No Changes since office visit: No Cold of Flu in the past 2 weeks, No New Medical Problems, No Changes in Medication and No Patient answered all questions The patient has been examined within 24 hours of the surgical procedure. The History & Physical has been completed within 30 days and I have reviewed it.: Yes Section B - Complete if H&P > 30 days Chief Complaint: Lesion of ulnar nerve, right upper limb,carpal Allergies: Allergies Allergy/AdvReac Type Severity Reaction Status Date / Time tramadol (TRAMADOL) Allergy Unknown VOMITING Verified 07/02/25 11:35 Plan I have reviewed the history and physical and performed a pertinent physical examination on my patient. No changes have occurred unless specified. Time Spent With Patient Time: Total time managing care of this patient today ____ minutes.
== END 2025-07-11 11:29 | disposition home or self-care (01) ==
PROVIDERS: PCP Physician Assistant; Visit Provider Orthopaedic Surgery
PROC: (CPT 64718; principal; 2025-07-11 07:30)
PROC: (CPT 64721; 2025-07-11 07:30)
DX: G56.01 Carpal tunnel syndrome, right upper limb (principal); G56.21 Lesion of ulnar nerve, right upper limb; R20.0 Anesthesia of skin; R20.2 Paresthesia of skin; K21.9 Gastro-esophageal reflux disease without esophagitis; F33.2 Major depressive disorder, recurrent severe without psychotic features; F11.20 Opioid dependence, uncomplicated; F17.210 Nicotine dependence, cigarettes, uncomplicated; F41.1 Generalized anxiety disorder; Z79.899 Other long term (current) drug therapy; Z88.5 Allergy status to narcotic agent; Z87.828 Personal history of other (healed) physical injury and trauma; Z98.890 Other specified postprocedural states; Z56.0 Unemployment, unspecified
CPT/HCPCS: 64721; 64718; J0131; J0690; J1171; J2003; J2004; J2250; J2704; J2795; J3010

== ENCOUNTER → 2025-07-11 06:55 | Outpatient (BNV) | payer OTHER, SELFPAY | PROVIDERS: PCP Physician Assistant; Visit Provider Orthopaedic Surgery | DX: G56.21 Lesion of ulnar nerve, right upper limb (principal); G56.01 Carpal tunnel syndrome, right upper limb | CPT/HCPCS: 64718; 64721 ==

== ENCOUNTER 2025-07-24 12:38 | Outpatient (AMB) | payer OTHER, SELFPAY ==
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
== END 2025-07-24 14:00 | disposition home or self-care (01) ==
LOC: HO.HOS 12:38
PROVIDERS: PCP Physician Assistant; Visit Provider Physician Assistant
DX: G56.21 Lesion of ulnar nerve, right upper limb (principal); G56.01 Carpal tunnel syndrome, right upper limb
CPT/HCPCS: 99024

== ENCOUNTER → 2025-07-24 12:38 | Outpatient (BNVA) | payer OTHER, SELFPAY | PROVIDERS: PCP Physician Assistant; Visit Provider Physician Assistant | DX: Z48.02 Encounter for removal of sutures (principal); G56.21 Lesion of ulnar nerve, right upper limb; G56.01 Carpal tunnel syndrome, right upper limb; Z98.890 Other specified postprocedural states | CPT/HCPCS: 99212 ==